=== PATIENT | male | born 1965 | race Caucasian/White ===

== ENCOUNTER → 2017-02-17 | Outpatient (CLI) | payer OTHER ==
[2017-02-17 17:24] LABS: CH 30.2; CHCM 35.1; HCT 50.2 % (39.0-53.0); HDW 3.01; HGB 17.9 gm/dL (13.0-17.5); MCH 30.8 pg (25.0-35.0); MCHC 35.7 g/dL (31.0-37.0); MCV 86.4 fL (80.0-100.0); Mean Platelet Volume 6.7; RBC 5.81 m/uL (4.30-5.90); RDW 15.2 % (11.5-15.5); WBC 9.8 k/uL (3.8-10.6)
[2017-02-17 17:54] LABS: Anion Gap 11 mmol/L; Blood Urea Nitrogen 20 mg/dL (9-20); Calcium 9.8 mg/dL (8.4-10.2); Carbon Dioxide 31 mmol/L (22-30); Chloride 105 mmol/L (98-107); Glucose 93 mg/dL (74-99); Non-African American GFR(MDRD) >60 (>60 ml/min/1.73 sqM); Potassium 3.9 mmol/L (3.5-5.1); Sodium 147 mmol/L (137-145)
== END | disposition home or self-care (01) ==
LOC: LABWHC1 17:03
PROVIDERS: ATTEND Internal Medicine Clinical Cardiac Electrophysiology
DX: I49.01 Ventricular fibrillation (principal)
CPT/HCPCS: 36415; 80048; 85027

== ENCOUNTER 2017-02-22 11:04 | Day surgery (SDC) | payer OTHER ==
[2017-02-17 11:22] VITALS: BMI 28.1
[~2017-02-22 11:04] MED LIST: LACTATED RINGERS 1,000 ML IV SCH; SODIUM CHLORIDE 0.9% 1,000 ML IV SCH
[2017-02-22 11:27] VITALS: TEMP 98.3
[2017-02-22] MEDS ORDERED: LIDOCAINE 1% INJ 10MG/ML (20 ML MDV) ONE (12:34)
[2017-02-22] MEDS ORDERED: PROPOFOL 10 MG/ML 20 ML VIAL IV ONE (12:34)
[2017-02-22] MEDS ORDERED: fentaNYL (PF) 50 MCG/ML 2 ML AMP ONE (12:34)
[2017-02-22 14:11] VITALS: BP 114/81; PULSE 70; RESP 18
--- NOTE | 2017-02-22 14:41 | CE ---
Dong Ahn is a 51-year-old male patient who has ischemic cardiomyopathy with a high DFT. He is on appropriate ( ) for medical treatment. He was brought in for ICD testing. He has had a high DFT in the past. He is a [employer] Evera XTVR, serial #[id number]. DFT testing was performed under anesthesia. A shockwave ( ) protocol was used to induce ventricular fibrillation. This was adequately and appropriately tested with least sensitivity and successfully internal defibrillated with 15 joule shock, charge time of 2.9 seconds, shocking impedance 73 ohms, no post-shock noise. The device was then reprogrammed to 2 joules of therapy. There is a monitor zone at 150 beats a minute without any therapies. VT zone at 176 beats a minute with extended end detections and VF at 200 beats per minute with extended detections. Appropriate detected cardioversion and defibrillation programmed. The device was interrogated and the R-waves were 11.5 mV, pacing threshold was 0.75 v at 0.4 ms, pacing impedance of 551 ohms, RV coil impedance is 69 ohms. RESULTS: 1. DFT testing with DFT stable at 15 joules. 2. ICD was interrogated and reprogrammed. 3. LDL is 98. ( ) on simvastatin 40 mg p.o. daily and I have asked him to switch to atorvastatin 40 mg p.o. daily so that LDL goal will be at least less than 70 mg/ dL. MTDD
== END 2017-02-22 13:55 | disposition home or self-care (01) ==
LOC: CATHEP 11:04
PROVIDERS: ATTEND Internal Medicine Clinical Cardiac Electrophysiology
DX: I25.5 Ischemic cardiomyopathy (principal); Z45.02 Encounter for adjustment and management of automatic implantable cardiac defibrillator; F17.210 Nicotine dependence, cigarettes, uncomplicated; I49.01 Ventricular fibrillation; E78.5 Hyperlipidemia, unspecified; G47.33 Obstructive sleep apnea (adult) (pediatric); Z99.89 Dependence on other enabling machines and devices; E03.9 Hypothyroidism, unspecified; Z79.82 Long term (current) use of aspirin; Z79.899 Other long term (current) drug therapy
CPT/HCPCS: 93642; J2001; J3010; J2704

== ENCOUNTER → 2018-01-12 | Outpatient (CLI) | payer OTHER ==
[2018-01-12 07:46] LABS: Basophils % (A) 1 %; Eosinophils % (A) 0 %; HGB 17.7 gm/dL (13.0-17.5); Lymphocytes # (A) 1.3 k/uL (1.0-4.8); Lymphocytes % (A) 13 %; MCH 29.9 pg (25.0-35.0); MCHC 33.5 g/dL (31.0-37.0); MCV 89.2 fL (80.0-100.0); Mean Platelet Volume 6.7; Monocytes # (A) 0.6 k/uL (0-1.0); Monocytes % (A) 6 %; Neutrophils # (A) 7.4 k/uL (1.3-7.7); Neutrophils % (A) 79 %; Platelet Count 158 k/uL (150-450); RBC 5.94 m/uL (4.30-5.90); RDW 15.4 % (11.5-15.5); WBC 9.5 k/uL (3.8-10.6)
--- NOTE | 2018-01-12 09:03 | XR ---
EXAMINATION TYPE: XR chest 2V DATE OF EXAM: 01/12/2018 COMPARISON: Prior chest x-ray 11/11/2016 HISTORY: Hypertension TECHNIQUE: Frontal and lateral views of the chest are obtained. FINDINGS: Intracardiac defibrillator lead is stable, generator is in the left pectoral region. Cardi ac mediastinal silhouette, pulmonary vascularity and ros are stable. No evident airspace disease, pn eumothorax, or pleural effusion. Prominent lung volume could be indicative of COPD. IMPRESSION: Stable exam. No acute abnormality.
[2018-01-12 09:50] LABS: ALT 36 U/L (21-72); AST 34 U/L (17-59); Albumin 4.2 g/dL (3.5-5.0); Alkaline Phosphatase 68 U/L (38-126); Anion Gap 10 mmol/L; Blood Urea Nitrogen 19 mg/dL (9-20); Calcium 9.4 mg/dL (8.4-10.2); Carbon Dioxide 33 mmol/L (22-30); Chloride 103 mmol/L (98-107); Cholesterol 106 mg/dL (<200); Glucose 107 mg/dL (74-99); HDL Cholesterol 27 mg/dL (40-60); LDL Cholesterol,Calculated 67 mg/dL (0-99); Potassium 4.4 mmol/L (3.5-5.1); Sodium 146 mmol/L (137-145); Total Bilirubin 0.6 mg/dL (0.2-1.3); Triglycerides 58 mg/dL (<150)
[2018-01-12 10:06] LABS: T4, Free (Free Thyroxine) 0.99 ng/dL (0.78-2.19)
[2018-01-12 10:21] LABS: PSA Annual Screen 1.68 ng/mL (0.00-4.00)
[2018-01-12 13:08] LABS: Hemoglobin A1C 5.6 % (4.0-6.0)
== END | disposition home or self-care (01) ==
LOC: LABWHC1 07:29
PROVIDERS: ATTEND Family Medicine
DX: I10 Essential (primary) hypertension (principal); E03.9 Hypothyroidism, unspecified; F41.9 Anxiety disorder, unspecified; Z12.5 Encounter for screening for malignant neoplasm of prostate
CPT/HCPCS: 84439; 80061; 80053; 84443; 85025; 83036; 71046; 36415; G0103

== ENCOUNTER → 2018-09-18 | Outpatient (CLI) | payer OTHER ==
[2018-09-18 11:17] LABS: Albumin 4.2 g/dL (3.80-4.90); Albumin/Globulin Ratio 1.75 (1.60-3.17); Calcium 9.2 mg/dL (8.7-10.3); Globulin 2.4 g/dL (1.6-3.3); Total Bilirubin 0.5 mg/dL (0.3-1.2); Total Protein 6.6 g/dL (6.2-8.2)
== END ==
LOC: LABWHC1 06:39
PROVIDERS: ATTEND Internal Medicine Clinical Cardiac Electrophysiology
DX: I47.2 Ventricular tachycardia (principal)
CPT/HCPCS: 36415; 80053; 80061; 84443

== ENCOUNTER → 2019-01-22 | Outpatient (CLI) | payer OTHER ==
--- NOTE | 2019-01-22 15:39 | CT ---
EXAMINATION TYPE: CT abdomen wo/w con DATE OF EXAM: 01/22/2019 COMPARISON: None. HISTORY: Hematuria, Pre scope per patient CT DLP: 1534 mGycm, Automated Exposure Control for Dose Reduction was Utilized. CONTRAST: CT scan of the abdomen is performed with oral and without and with IV Contrast, patient injected with 100 mL of Isovue 300. FINDINGS: LUNG BASES: Right ventricular defibrillator lead is noted. LIVER/GB: Calcifications near level of lisa hepatis are felt to reflect subcentimeter calcified lymp h nodes. PANCREAS: No significant abnormality is seen. SPLEEN: Spleen is mildly enlarged at 13.3 cm long axis axial image 25. ADRENALS: No significant abnormality is seen. KIDNEYS: Noncontrast images show single 2 mm calculus mid pole level right kidney coronal image 62. P ostcontrast images show symmetric cortical medullary uptake and excretion from both kidneys without e vidence of concerning solid or cystic renal mass or hydronephrosis identified bilaterally. BOWEL: Oral contrast does not reach level of ileal loops in the right lower quadrant making evaluatio n of bowel slightly suboptimal. No suspicious small or large bowel dilatation is present. Incidental normal-appearing appendix from posterior base of cecum. LYMPH NODES: No greater than 1cm abdominal lymph nodes are appreciated. OSSEOUS STRUCTURES: Mild to moderate height loss superior and inferior L1 endplates without lucency t o suggest acute compression fracture is presumed chronic. OTHER: No significant additional abnormality is seen. IMPRESSION: Single 2 mm calculus mid pole level right kidney.
== END | disposition home or self-care (01) ==
LOC: RADCTMAIN 13:02
PROVIDERS: ATTEND Urology
DX: N20.0 Calculus of kidney (principal); D41.02 Neoplasm of uncertain behavior of left kidney
CPT/HCPCS: 82565; 84520; 74170; 36415; Q9967

== ENCOUNTER → 2019-07-24 | Outpatient (CLI) | payer OTHER ==
--- NOTE | 2019-07-25 11:50 | XR ---
Right knee HISTORY: Right knee pain 3 views of the right knee Bone mineralization, joint spaces and alignment are maintained. There is mild marginal spurring prese nt. Minimal joint effusion present in the suprapatellar location. There are vascular calcifications w ithin the soft tissues. IMPRESSION: Mild osteoarthritis.
== END | disposition home or self-care (01) ==
LOC: RADXRMAIN 17:30
PROVIDERS: ATTEND Family Medicine
DX: M17.11 Unilateral primary osteoarthritis, right knee (principal)

== ENCOUNTER → 2020-07-10 | Outpatient (CLI) | payer BC ==
[2020-07-10 11:16] LABS: African American GFR (CKD) 110.3 (60.0-200.0); Anion Gap 6.3 mmol/L (4.00-12.00); BUN/Creat Ratio 24.44 Ratio (12.00-20.00); Calcium 9.1 mg/dL (8.7-10.3); Carbon Dioxide 28.7 mmol/L (21.6-31.8); Chol/HDL Ratio 3.86; LDL Cholesterol,Calculated 87.4 mg/dL (0.0-131.0); Non-African American GFR(CKD) 95.1 (60.0-200.0); Potassium 4.3 mmol/L (3.5-5.5); VLDL Calculation 12.6 mg/dL (5.00-40.00)
== END | disposition home or self-care (01) ==
LOC: LABWHC1 07:28
PROVIDERS: ATTEND Internal Medicine Interventional Cardiology
DX: Z00.00 Encounter for general adult medical examination without abnormal findings (principal); E78.5 Hyperlipidemia, unspecified; I48.0 Paroxysmal atrial fibrillation
CPT/HCPCS: 36415; 80048; 80061; 84443

== ENCOUNTER 2024-03-30 12:32 | Day surgery (SDC) | payer BC ==
[~2024-03-30 12:32] MED LIST changes: +HEPARIN SODIUM,PORCINE 10,000 UNIT/ML 1 ML VIAL ONE; -LACTATED RINGERS 1,000 ML IV SCH; +LIDOCAINE 1% INJ 10MG/ML (20 ML MDV) ONE; +SODIUM CHLORIDE 0.9% 1,000 ML BAG ONE; -SODIUM CHLORIDE 0.9% 1,000 ML IV SCH; +VERAPAMIL 2.5 MG/ML 4 ML VIAL ONE
[2024-03-30] MEDS ORDERED: HEPARIN SODIUM 1,000 UN/ML (10ML VL) ONE (12:44)
[2024-03-30] MEDS ORDERED: MIDAZOLAM 2 MG/2 ML VIAL ONE (12:44)
[2024-03-30] MEDS ORDERED: fentaNYL (PF) 50 MCG/ML 2 ML AMP ONE (12:44)
[2024-03-30] MEDS ORDERED: SODIUM CHLORIDE 0.9% 250 ML BAG ONE (13:04)
[2024-03-30] MEDS ORDERED: HEPARIN SODIUM,PORCINE 5,000 UNIT/ML 1 ML VIAL ONE (13:04)
[2024-03-30] MEDS: IOPAMIDOL-370 100ML BTL INJ ONE (13:20)
== END 2024-03-30 17:00 | disposition home or self-care (01) ==
LOC: CATHCVL 12:32
PROVIDERS: ATTEND Student in an Organized Health Care Education/Training Program
DX: R94.39 Abnormal result of other cardiovascular function study
CPT/HCPCS: 93458

== ENCOUNTER → 2024-07-23 | Outpatient (CLI) | payer BC ==
[2024-07-23 15:25] LABS: VLDL Calculation 17.54 mg/dL (5.00-40.00)
== END | disposition home or self-care (01) ==
LOC: LABWHC1 08:58
PROVIDERS: ATTEND Internal Medicine Clinical Cardiac Electrophysiology
DX: E78.5 Hyperlipidemia, unspecified (principal)
CPT/HCPCS: 36415; 80061